=== PATIENT | male | born 1970 | race Caucasian/White ===

== ENCOUNTER 2018-08-05 19:56 | Emergency (ER) | payer OTHER ==
[2018-08-05 20:35] VITALS: BP 130/76; PULSE 85; RESP 18; TEMP 97.9
[2018-08-05] MEDS ORDERED: PROPARACAINE 0.5% OPHTH DROPS 15 ML BTL LEFT EYE STA (20:41)
--- NOTE | 2018-08-05 21:56 | ED ---
General Adult HPI - General Chief complaint: ENT Stated complaint: Rust in Eye Time Seen by Provider: 08/05/18 20:40 Source: patient, RN notes reviewed, old records reviewed Mode of arrival: ambulatory Limitations: no limitations - History of Present Illness Initial comments: 48-year-old male patient with past medical history of renal calculi presents to ED with possible foreign body in eye. Patient reports that he was working on his car last night. Patient had a lot of debris on his sweater. Patient office where he felt something go into his eye. Patient had left ocular irritation throughout the day. Patient denies any other complaints. Systemic: Pt denies fatigue, myalgia, fever/chills, rash. Pt denies weakness, night sweats, weight loss. Neuro: Pt denies headache, visual disturbances, syncope or pre-syncope. HEENT: Pt denies ocular discharge or irritation, otalgia, rhinorrhea, pharyngitis or notable lymphadenopathy. Cardiopulmonary: Pt denies chest pain, SOB, heart palpitations, dyspnea on exertion. Abdominal/GI: Pt denies abdominal pain, n/v/d. : Pt denies dysuria, burning w/ urination, frequency/urgency. Denies new onset urinary or bowel incontinence. MSK: Pt denies myalgia, loss of strength or function in extremities. Neuro: Pt denies new onset weakness, paresthesias. - Related Data Home Medications Medication Instructions Recorded Confirmed Hydrocodone/Acetaminophen [Vicodin 1 - 2 each PO Q6HR PRN 04/07/14 04/15/14 5-300 mg Tablet] Previous Rx's Medication Instructions Recorded Hydrocodone/Acetaminophen [[place] 1 - 2 each PO Q6HR PRN #90 tab 04/15/14 5-325] Gentamicin 0.3% Ophth Oint [Gentak 1 applic BOTH EYES Q8H 5 Days #1 08/05/18 0.3% Ophth Oint] tube Allergies Allergy/AdvReac Type Severity Reaction Status Date / Time Penicillins Allergy Unknown Verified 08/05/18 20:35 Childhood Review of Systems ROS Statement: Those systems with pertinent positive or pertinent negative responses have been documented in the HPI. ROS Other: All systems not noted in ROS Statement are negative. Past Medical History Past Medical History: Musculoskeletal Disorder Additional Past Medical History / Comment(s): hx. kidney stones, Crohn's disease, bulging disc History of Any Multi-Drug Resistant Organisms: None Reported Past Surgical History: Bowel Resection Past Anesthesia/Blood Transfusion Reactions: No Reported Reaction Past Psychological History: No Psychological Hx Reported Smoking Status: Current every day smoker Past Alcohol Use History: Occasional Past Drug Use History: None Reported General Exam - General Exam Comments Initial Comments: Constitutional: NAD, AOX3, Pt has pleasant affect. HEENT: NC/AT, trachea midline, neck supple, no lymphadenopathy. Posterior pharynx non erythematous, without exudates. External ears appear normal, without discharge. Mucous membranes moist. Eyes PERRLA, EOM intact. There is no scleral icterus. Small piece of metal noted at approximately 6:00. Removed with Q-tip. Small rust ring removed with [place] brush. Fluorescein stain revealed uptake at rest removal, no other areas of uptake. IOP's average 13 bilaterally. No pallor noted. Cardiopulmonary: RRR, no murmurs, rubs or gallops, no JVD noted. Lungs CTAB in anterior and posterior mesa. No peripheral edema. Abdominal exam: Abdomen soft and non-distended. Abdomen non-tender to palpation in all 4 quadrants. Bowel sounds active in LLQ. No hepatosplenomegaly. No ecchymosis Neuro: CN II-XII grossly intact. No nuchal rigidity. MSK: No posterior calf tenderness bilaterally, homans sign negative bilaterally. Posterior tibialis and radial pulse +2 bilaterally. Sensation intact in upper and lower extremities. Full active ROM in upper and lower extremities, 5/5 stregnth. Limitations: no limitations Course Vital Signs 08/05/18 20:32 Temperature 97.9 F Pulse Rate 85 Respiratory 18 Rate Blood Pressure 130/76 O2 Sat by Pulse 96 Oximetry Medical Decision Making - Medical Decision Making 48-year-old male patient with past medical history of renal calculi presents to ED with possible foreign body in eye. Patient reports that he was working on his car last night. Patient had a lot of debris on his sweater. Patient office where he felt something go into his eye. Patient had left ocular irritation throughout the day. Patient denies any other complaints. Patient vitalsigns stable, afebrile. Physical exam displayed: Small piece of metal noted at approximately 6:00. Removed with Q-tip. Small rust ring removed with [place] brush. Fluorescein stain revealed uptake at rest removal, no other areas of uptake. IOP's average 13 bilaterally. Patient prescribed gentamicin ointment. Patient to follow-up with dialysis clinical manager in 1-2 days. Patient tetanus updated within last 5 years per patient. Case discussed with Dr. Cooley. Disposition Clinical Impression: Corneal abrasion Disposition: HOME SELF-CARE Condition: Stable Instructions (If sedation given, give patient instructions): Corneal Abrasion (ED) Additional Instructions: Patient to adhere to previously discussed treatment plan and will take medication(s) as directed. Patient to follow up with PCP in 1-2 days. Patient to return to ED if symptoms do not improve. Please take anabiotic ointment as prescribed. Please follow-up with dialysis clinical manager in 1-2 days. Please follow up with primary care provider in 1-2 days. Please return to ER if condition worsens in any way. Prescriptions: Gentamicin 0.3% Ophth Oint [Gentak 0.3% Ophth Oint] 1 applic BOTH EYES Q8H 5 Days #1 tube Is patient prescribed a controlled substance at d/c from ED?: No Referrals: None,Stated [Primary Care Provider] - 1-2 days Kelsey Pierre MD [STAFF PHYSICIAN] - 1-2 days
== END 2018-08-05 22:03 | disposition home or self-care (01) ==
LOC: EC 19:56
DX: T15.02XA Foreign body in cornea, left eye, initial encounter (principal); F17.200 Nicotine dependence, unspecified, uncomplicated; Z88.0 Allergy status to penicillin
CPT/HCPCS: 99283

== ENCOUNTER 2020-06-19 16:14 | Emergency (ER) | payer OTHER ==
[2020-06-19 16:22] VITALS: BP 141/86; PULSE 91; RESP 18; TEMP 98.2
[2020-06-19] MEDS ORDERED: DIPH,PERTUS(ACELL)TETVAC-LF 0.5 ML VIAL IM ONE (16:46)
--- NOTE | 2020-06-19 16:55 | ED ---
Burn/Smoke HPI - General Chief complaint: Burn/Smoke Inhalation Stated complaint: Burn on L Hand Time Seen by Provider: 06/19/20 16:24 Source: patient, RN notes reviewed Mode of arrival: ambulatory Limitations: no limitations - History of Present Illness Initial comments: this is a 49-year-old male who states he was using hot motor oil to expanded bearing before he put on the shaft of material he was working on when he actually burned both hands on the motor oil. This did occur 2 days ago. He states he has some increased pain to the left hand at this time salt to the dorsal aspect. He denies any overt fevers chills or sweats he states the skin is turning colors over both hands worse over the left he has some sloughing of the skin on the left hand. He states on the pain radiates up his left forearm no evidence of any lymphangitis he states other complaints or modifying factors at this time. He does have full range of motion both hands no loss of sensation or function. He also states he's not exactly sure when his last tetanus shot was. He has been clean the wounds using accommodation of wound cleanser and hydrogen peroxide. MD Complaint: burn - Related Data Previous Rx's Medication Instructions Recorded Ibuprofen 800 mg PO Q6HR PRN #20 tablet 06/19/20 SILVER sulfADIAZINE Cream 1 applic TOPICAL BID #400 gram 06/19/20 [Silvadene 1% Cream] Allergies Allergy/AdvReac Type Severity Reaction Status Date / Time Penicillins Allergy Unknown Verified 06/19/20 17:05 Childhood Review of Systems ROS Statement: Those systems with pertinent positive or pertinent negative responses have been documented in the HPI. ROS Other: All systems not noted in ROS Statement are negative. Past Medical History Past Medical History: Musculoskeletal Disorder Additional Past Medical History / Comment(s): hx. kidney stones, Crohn's disease, bulging disc History of Any Multi-Drug Resistant Organisms: None Reported Past Surgical History: Bowel Resection Past Anesthesia/Blood Transfusion Reactions: No Reported Reaction Past Psychological History: No Psychological Hx Reported Smoking Status: Current every day smoker Past Alcohol Use History: Occasional Past Drug Use History: None Reported General Exam - General Exam Comments Initial Comments: this is a well-developed well-nourished awake alert oriented 3 male Limitations: no limitations General appearance: alert, anxious Head exam: Present: atraumatic, normocephalic, normal inspection Eye exam: Present: normal appearance, PERRL, EOMI. Absent: scleral icterus, conjunctival injection, periorbital swelling ENT exam: Present: normal exam Neck exam: Present: normal inspection, full ROM. Absent: tenderness, meningismus, lymphadenopathy Respiratory exam: Present: normal lung sounds bilaterally. Absent: respiratory distress, wheezes, rales, rhonchi, stridor Cardiovascular Exam: Present: regular rate, normal rhythm. Absent: systolic murmur, diastolic murmur, rubs, gallop, clicks GI/Abdominal exam: Absent: distended, tenderness, guarding, rebound, rigid Extremities exam: Present: full ROM, tenderness, normal capillary refill, other (tenderness palpation over the dorsum of both hands evidence of partial- thickness burn to the dorsal aspect of both hands especially on the left total by surface area of both hands combined is less 1%.There is some sloughing of skin on the dorsal right hand very minimal evidence of any joint involv). Abs ent: pedal edema, joint swelling, calf tenderness Back exam: Present: normal inspection Neurological exam: Present: alert, oriented X3, CN II-XII intact Psychiatric exam: Present: normal affect, normal mood Skin exam: Present: warm, dry. Absent: intact, normal color, rash Course Vital Signs 06/19/20 16:19 Temperature 98.2 F Pulse Rate 91 Respiratory 18 Rate Blood Pressure 141/86 O2 Sat by Pulse 99 Oximetry Medical Decision Making - Medical Decision Making patient did have clean dressing applied with Silvadene he will be discharged with a prescription for Silvadene as well as from ibuprofen his doctor return when necessary. No further current treatment is indicated Disposition Clinical Impression: Burn, hands, second degree Disposition: HOME SELF-CARE Condition: Good Instructions (If sedation given, give patient instructions): Second Degree Burn (ED) Prescriptions: Ibuprofen 800 mg PO Q6HR PRN #20 tablet PRN Reason: Pain SILVER sulfADIAZINE Cream [Silvadene 1% Cream] 1 applic TOPICAL BID #400 gram Is patient prescribed a controlled substance at d/c from ED?: No Referrals: None,Stated [Primary Care Provider] - 1-2 days
[2020-06-19] MEDS ORDERED: IBUPROFEN 800 MG TAB PO STA (17:21)
== END 2020-06-19 17:34 | disposition home or self-care (01) ==
LOC: EC 16:14
DX: T23.202A Burn of second degree of left hand, unspecified site, initial encounter (principal); T23.201A Burn of second degree of right hand, unspecified site, initial encounter; T31.0 Burns involving less than 10% of body surface; F17.200 Nicotine dependence, unspecified, uncomplicated; Z88.0 Allergy status to penicillin; Z23 Encounter for immunization; X12.XXXA Contact with other hot fluids, initial encounter
CPT/HCPCS: 90471; 90715; 99284

== ENCOUNTER 2020-07-30 09:40 | Emergency (ER) | payer OTHER ==
[2020-07-30 09:44] VITALS: BP 150/91; PULSE 117; RESP 18; TEMP 98
[2020-07-30] MEDS ORDERED: LIDOCAINE 1% INJ 10MG/ML (20 ML MDV) SQ ONE (09:54)
--- NOTE | 2020-07-30 09:58 | ED ---
Wound/Laceration HPI - General Chief Complaint: Wound/Laceration Stated Complaint: hand injury Time Seen by Provider: 07/30/20 09:45 Source: patient, RN notes reviewed Mode of arrival: ambulatory Limitations: no limitations - History of Present Illness Initial Comments: This a 50-year-old male presents emergency Department chief complaint laceration to his left hand third digit. Patient states that he has a laceration from a knife. Patient states his tetanus is up-to-date. Denies any paresthesias no decreased range of motion. Patient offers no other complaints. - Related Data Home Medications Medication Instructions Recorded Confirmed No Known Home Medications 07/30/20 07/30/20 Allergies Allergy/AdvReac Type Severity Reaction Status Date / Time Penicillins Allergy Unknown Verified 07/30/20 10:12 Childhood Review of Systems ROS Statement: Those systems with pertinent positive or pertinent negative responses have been documented in the HPI. ROS Other: All systems not noted in ROS Statement are negative. Past Medical History Past Medical History: Musculoskeletal Disorder Additional Past Medical History / Comment(s): hx. kidney stones, Crohn's disease, bulging disc History of Any Multi-Drug Resistant Organisms: None Reported Past Surgical History: Bowel Resection Past Anesthesia/Blood Transfusion Reactions: No Reported Reaction Past Psychological History: No Psychological Hx Reported Smoking Status: Current every day smoker Past Alcohol Use History: Occasional Past Drug Use History: None Reported General Exam Limitations: no limitations General appearance: alert, in no apparent distress Respiratory exam: Present: normal lung sounds bilaterally. Absent: respiratory distress, wheezes, rales, rhonchi, stridor Cardiovascular Exam: Present: regular rate, normal rhythm, normal heart sounds. Absent: systolic murmur, diastolic murmur, rubs, gallop, clicks Extremities exam: Present: other (Left hand third digit there is a V-shaped laceration 3 cm range motion neurovascular intact full strength) Skin exam: Present: warm, dry, intact, normal color. Absent: rash Course Vital Signs 07/30/20 09:41 Temperature 98 F Pulse Rate 117 H Respiratory 18 Rate Blood Pressure 150/91 O2 Sat by Pulse 97 Oximetry Procedures - Laceration Laceration #1 Consent Obtained: verbal consent Indication: laceration Site: hand (Right hand third digit) Size (cm): 3 Description: flap, irregular Depth: simple, single layer Anesthetic Used: lidocaine 1%, without epi Anesthesia Technique: local infiltration Amount (mls): 3 Pre-repair: wound explored, irrigated extensively, deep structures intact Type of Sutures: nylon Size of Sutures: 4-0 Number of Sutures: 5 Technique: simple, interrupted Patient Tolerated Procedure: well, no complications Medical Decision Making - Medical Decision Making Patient's finger was sutured with no complications. Patient discharged in stable condition wound care instruction provided return parameters were provided. Disposition Clinical Impression: Laceration of finger of right hand Disposition: HOME SELF-CARE Condition: Stable Instructions (If sedation given, give patient instructions): Care For Your Stitches (ED), Finger Laceration (ED) Additional Instructions: Have sutures removed in 10 days. Please return to the Emergency Department if symptoms worsen or any other concerns. Is patient prescribed a controlled substance at d/c from ED?: No Referrals: None,Stated [Primary Care Provider] - 1-2 days Time of Disposition: 10:22
== END 2020-07-30 10:46 | disposition home or self-care (01) ==
LOC: EC 09:40
DX: S61.214A Laceration without foreign body of right ring finger without damage to nail, initial encounter (principal); W26.0XXA Contact with knife, initial encounter; Z87.442 Personal history of urinary calculi; F17.200 Nicotine dependence, unspecified, uncomplicated
CPT/HCPCS: 99282; 12002; J2001; 12001

== ENCOUNTER 2021-11-27 08:23 | Emergency (ER) | payer OTHER ==
[2021-11-27 08:28] VITALS: RESP 18
[2021-11-27] MEDS ORDERED: PROPARACAINE 0.5% OPHTH DROPS 15 ML BTL LEFT EYE STA (08:42)
[2021-11-27] MEDS ORDERED: FLUORESCEIN STRIPS 1 MG STRIP LEFT EYE ONE (08:44)
--- NOTE | 2021-11-27 09:09 | ED ---
Eye Problem HPI - General Chief complaint: Eye Problems Stated complaint: Eye Injury Time Seen by Provider: 11/27/21 08:40 Source: patient Mode of arrival: ambulatory Limitations: no limitations - History of Present Illness Initial comments: Patient is a 51-year-old male presenting with chief complaint of left eye discomfort. 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 He attempted to flush the eye out and afterwards he felt better, however this morning the eye is painful, swollen, and sensitive to light. He admits to some blurry vision. He states his last tetanus shot was less than 5 years ago. - Related Data Previous Rx's Medication Instructions Recorded Erythromycin Ophth Oint [Romycin 1 applic LEFT EYE QID 5 Days #3.5 11/27/21 Ophth Oint] gm Allergies Allergy/AdvReac Type Severity Reaction Status Date / Time Penicillins Allergy Unknown Verified 11/27/21 08:27 Childhood Review of Systems ROS Statement: Those systems with pertinent positive or pertinent negative responses have been documented in the HPI. ROS Other: All systems not noted in ROS Statement are negative. Past Medical History Past Medical History: Musculoskeletal Disorder Additional Past Medical History / Comment(s): hx. kidney stones, Crohn's disease, bulging disc History of Any Multi-Drug Resistant Organisms: None Reported Past Surgical History: Bowel Resection Past Anesthesia/Blood Transfusion Reactions: No Reported Reaction Past Psychological History: No Psychological Hx Reported Smoking Status: Current every day smoker Past Alcohol Use History: Occasional Past Drug Use History: None Reported General Exam Limitations: no limitations General appearance: alert, in no apparent distress Head exam: Present: atraumatic, normocephalic, normal inspection Eye exam: Present: PERRL, EOMI. Absent: scleral icterus Expanded Pupils: Regular, Round: Bilateral, Reactive: Bilateral Sclera/Conjunctival: Foreign Body: Left (rust ring) Neck exam: Present: normal inspection Neurological exam: Present: alert, oriented X3, CN II-XII intact Psychiatric exam: Present: normal affect, normal mood Skin exam: Present: warm, dry, intact, normal color. Absent: rash Course Vital Signs 11/27/21 11/27/21 08:25 11:04 Temperature 98.4 F 98 F Pulse Rate 73 70 Respiratory 18 18 Rate Blood Pressure 132/76 131/74 O2 Sat by Pulse 99 Oximetry Medical Decision Making - Medical Decision Making Patient is a 51-year-old male presenting with chief complaint of "there is something in my eye". 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 This morning when he woke up the eye was painful, swollen, and he felt a foreign body sensation. On examination there is a piece of metal seen with the slit lamp. Portion of the metal was removed, using a moist cotton swab however rust ring still remains. Patient was started on erythromycin eye ointment and instructed to follow-up with ophthalmology. Report back to ER if any new or worsening symptoms. I discussed return parameters answered all questions. Patient conveyed verbal understanding and agreed to the plan. I discussed this case with my attending Dr. Griffin. Disposition Clinical Impression: Corneal rust ring of left eye, Corneal abrasion Disposition: HOME SELF-CARE Condition: Good Instructions (If sedation given, give patient instructions): Eye Foreign Body (ED), Abrasion (ED) Additional Instructions: Follow-up with ophthalmology for removal of rust ring, call tomorrow morning and follow up as soon as possible. Follow up with PCP in one to 2 days. Report back to ER with any new or worsening symptoms. Take medication as prescribed. Prescriptions: Erythromycin Ophth Oint [Romycin Ophth Oint] 1 applic LEFT EYE QID 5 Days #3.5 gm Is patient prescribed a controlled substance at d/c from ED?: No Referrals: None,Stated [Primary Care Provider] - 1-2 days Daniel Pollard MD [STAFF PHYSICIAN] - 1-2 days Time of Disposition: 10:20
[2021-11-27 11:08] VITALS: BP 131/74; PULSE 70; TEMP 98
== END 2021-11-27 11:04 | disposition home or self-care (01) ==
LOC: EC 08:23
DX: S05.02XA Injury of conjunctiva and corneal abrasion without foreign body, left eye, initial encounter (principal); H16.022 Ring corneal ulcer, left eye; F17.200 Nicotine dependence, unspecified, uncomplicated; Z88.0 Allergy status to penicillin; W31.2XXA Contact with powered woodworking and forming machines, initial encounter
CPT/HCPCS: 99283

== ENCOUNTER 2023-07-25 12:15 | Day surgery (SDC) | payer OTHER ==
[2023-07-25 12:51] VITALS: RESP 18
[2023-07-25 13:00] LABS: African American GFR (CKD) >90 (>60 ml/min/1.73 sqM); Blood Urea Nitrogen 15 mg/dL (9-20); Non-African American GFR(CKD) >90 (>60 ml/min/1.73 sqM)
[2023-07-25 15:17] VITALS: BP 124/80; PULSE 76
--- NOTE | 2023-07-25 15:59 | P.OP ---
Date of Procedure: 07/25/23 Description of Procedure: Preoperative Diagnosis: Need for chemotherapy, anal cancer Postoperative Diagnosis: Same. Procedure(s) Performed: Ultrasound-guided cannulation left basilic vein. Insertion of peripherally inserted central catheter under fluoroscopic guidance. Anesthesia: local 1% lidocaine plain Surgeon: Wesley Estimated Blood Loss (ml): 5 IV fluids (ml): 0 Urine output (ml): 0 Pathology: none sent Condition: stable Disposition: no change Indications for Procedure: Patient requires long-term IV antibiotics as an outpatient patient is offered a PICC line to allow for intravenous administration of antibiotics. Description of Procedure: Patient was brought to the special procedure suite. The left upper extremity sterilely prepped and draped in usual manner. Ultrasound was utilized to identify the basilic vein which was normally compressible free of visible thrombus. Permenant image was stored. 1% Xylocaine was utilized for local anesthesia tissues overlying the vein. Through this anesthetized area and with the aid of ultrasound a micropuncture needle was utilized to cannulate the vein. Once cannulated, Softip guidewire was advanced into the vein. The needle was withdrawn and a micropuncture sheath and dilator advanced over the guidewire. The guidewire was withdrawn and exchanged for the PICC guidewire and measured to the cavoatrial junction. The catheter was cut to size and advanced into the cavoatrial junction without resistance. The sheath was peeled away. Blood was easily withdrawn through the catheter and the catheter was then flushed with heparinized saline solution and secured to the skin. Patient tolerated procedure well and was returned to their room in satisfactory and stable condition.
--- NOTE | 2023-07-26 13:18 | IR ---
PICC Insertion: EXAMINATION TYPE: IR cvc insert >=5 years Intraoperative/procedural fluoroscopic services were provid ed. CLINICAL INDICATION:Male, 52 years old with history of dual lumen,bloods draws,chemo, 41cm basillic; , [facility] Total fluoroscopy time is 0.0 min. DAP: 0.0657 Gycm2 uGym2 Please see the operative/procedural note for further details.
== END 2023-07-25 14:35 | disposition home or self-care (01) ==
LOC: CATHCVL 12:15
PROVIDERS: ATTEND Surgery
DX: Z45.2 Encounter for adjustment and management of vascular access device (principal); C21.0 Malignant neoplasm of anus, unspecified
CPT/HCPCS: 36573; 82565; 84520; C1751; C1769

== ENCOUNTER 2024-01-26 16:49 | Observation (INO) | payer OTHER ==
[2024-01-26] MEDS: KETOROLAC 15 MG/ML 1 ML VIAL IVP STA (17:18)
[2024-01-26] MEDS: MORPHINE SULFATE 4 MG/ML SYRINGE IVP STA (17:18)
--- NOTE | 2024-01-26 17:31 | ED ---
General Adult HPI - General Chief complaint: Skin/Abscess/Foreign Body Stated complaint: jaw abcess Time Seen by Provider: 01/26/24 17:01 Source: patient Mode of arrival: ambulatory Limitations: no limitations - History of Present Illness Initial comments: 53-year-old male presenting with chief complaint of painful mass to the right submandibular region. Started yesterday and patient states that it was small and soft. As the day went on and throughout today it has been getting larger, tender, and harder. He has pain traveling to his ear and down his neck. No difficulty breathing or swallowing. No fevers. No hearing changes or discharge from the ear. No sore throat. No dry mouth. - Related Data Home Medications Medication Instructions Recorded Confirmed No Known Home Medications 07/24/23 07/25/23 Allergies Allergy/AdvReac Type Severity Reaction Status Date / Time Penicillins Allergy Unknown Verified 07/25/23 12:29 Childhood Review of Systems ROS Statement: Those systems with pertinent positive or pertinent negative responses have been documented in the HPI. ROS Other: All systems not noted in ROS Statement are negative. Past Medical History Past Medical History: Cancer, Musculoskeletal Disorder Additional Past Medical History / Comment(s): hx. kidney stones, Crohn's disease, hx bulging disc, rectal cancer, pt to start radiation soon. recent PET scan History of Any Multi-Drug Resistant Organisms: None Reported Past Surgical History: Back Surgery, Bowel Resection Additional Past Surgical History / Comment(s): disc surgery, colostomy with reversal. colonoscopy, anal biopsy and with more extensive tissue removal 3-4 weeks ago @ [facility]. Past Anesthesia/Blood Transfusion Reactions: No Reported Reaction Past Psychological History: No Psychological Hx Reported Smoking Status: Current every day smoker - Past Family History Father Family Medical History: Cancer Additional Family Medical History / Comment(s): prostate General Exam Limitations: no limitations General appearance: alert, in no apparent distress Head exam: Present: atraumatic, normocephalic Eye exam: Present: normal appearance, EOMI ENT exam: Present: normal oropharynx, mucous membranes moist Neck exam: Present: other (There is a 3 cm x 3 cm tender indurated mass near the base of the right ear). Absent: meningismus Respiratory exam: Absent: respiratory distress Cardiovascular Exam: Present: regular rate Neurological exam: Present: alert, oriented X3 Psychiatric exam: Present: normal affect, normal mood Skin exam: Present: warm, dry Course Vital Signs 01/26/24 01/26/24 01/26/24 16:52 19:02 20:00 Temperature 98.1 F Pulse Rate 79 84 76 Respiratory 16 16 16 Rate Blood Pressure 133/69 136/72 151/66 O2 Sat by Pulse 97 96 95 Oximetry 01/26/24 23:00 Temperature Pulse Rate 76 Respiratory 18 Rate Blood Pressure 150/70 O2 Sat by Pulse 98 Oximetry Medical Decision Making - Medical Decision Making Was pt. sent in by a medical professional or institution (, PA, FLORAL ARTIST, urgent care, hospital, or custodial...) When possible be specific @ -No Did you speak to anyone other than the patient for history (EMS, parent, family, police, friend...)? What history was obtained from this source @ -No Did you review nursing and triage notes (agree or disagree)? Why? @ -I reviewed and agree with nursing and triage notes Were old charts reviewed (outside hosp., previous admission, EMS record, old EKG, old radiological studies, urgent care reports/EKG's, custodial records)? Report findings @ -No old charts were reviewed Differential Diagnosis (chest pain, altered mental status, abdominal pain women, abdominal pain men, vaginal bleeding, weakness, fever, dyspnea, syncope, headache, dizziness, GI bleed, back pain, seizure, CVA, palpatations, mental health, musculoskeletal)? @ -Differential includes sialadenitis, parotiditis, malignancy, ly mphadenopathy, abscess, this is not an all-inclusive list EKG interpreted by me (3pts min.). @ -As above X-rays interpreted by me (1pt min.). @ -None done CT interpreted by me (1pt min.). @ -CT shows 3.3 cm mass in the right parotid gland. Salivary gland neoplasm is in the differential. Borderline and mildly enlarged parotid space lymph nodes on both sides measuring up to 1 cm nonspecific. Asymmetric effacement left vallecular space probably due to asymmetric lingual tonsillar hypertrophy. Direct visualization to exclude a mucosal lesion. COPD with mild emphysema. Either 1.5 cm polyp or mucosal retention cyst of the right frontal sinus. U/S interpreted by me (1pt. min.). @ -None done What testing was considered but not performed or refused? (CT, X-rays, U/S, labs)? Why? @ -None What meds were considered but not given or refused? Why? @ -None Did you discuss the management of the patient with other professionals (professionals i.e. , PA, FLORAL ARTIST, lab, RT, psych nurse, licensed clinical social worker, manager of warehouse, teacher, records officer, social work case manager)? Give summary @ -I spoke with Katalina Montoya from [facility] who accepts admission Was smoking cessation discussed for >3mins.? @ -No Was critical care preformed (if so, how long)? @ -No Were there social determinants of health that impacted care today? How? (Homelessness, low income, unemployed, alcoholism, drug addiction, transportation, low edu. Level, literacy, decrease access to med. care, usp, rehab)? @ -No Was there de-escalation of care discussed even if they declined (Discuss DNR or withdrawal of care, Hospice)? DNR status @ -No What co-morbidities impacted this encounter? (DM, HTN, Smoking, COPD, CAD, Cancer, CVA, ARF, Chemo, Hep., AIDS, mental health diagnosis, sleep apnea, morbid obesity)? @ -None Was patient admitted / discharged? Hospital course, mention meds given and route, prescriptions, significant lab abnormalities, going to OR and other pertinent info. @ -53-year-old male presenting with chief complaint of increasingly swollen and painful bump to the right submandibular region. On exam this area is indurated and tender to the touch. WBC 12.4. CT shows 3.3 cm mass of the parotid gland. Patient will be admitted for ENT consult. He is started on vancomycin. Patient is agreeable with this plan. I discussed this case with my attending Dr. Cooley Undiagnosed new problem with uncertain prognosis? @ -No Drug Therapy requiring intensive monitoring for toxicity (Heparin, Nitro, Insulin, Cardizem)? @ -No Were any procedures done? @ -No Diagnosis/symptom? @ -Parotid gland mass Acute, or Chronic, or Acute on Chronic? @ -Acute Uncomplicated (without systemic symptoms) or Complicated (systemic symptoms)? @ -Complicated Side effects of treatment? @ -No Exacerbation, Progression, or Severe Exacerbation? @ -No Poses a threat to life or bodily function? How? (Chest pain, [place], [place], pneumonia, PE, COPD, DKA, ARF, appy, cholecystitis, CVA, Diverticulitis, Homicidal, Suicidal, threat to staff... and all critical care pts) @ -yes - Lab Data Result diagrams: 01/26/24 17:05 01/27/24 04:56 Lab Results 01/26/24 01/26/24 01/26/24 Range/Units 17:05 17:05 17:05 WBC 12.4 H (3.8-10.6) k/uL RBC 4.46 (4.30-5.90) m/uL Hgb 13.3 (13.0-17.5) gm/dL Hct 41.5 (39.0-53.0) % MCV 93.0 (80.0-100.0) fL MCH 29.9 (25.0-35.0) pg MCHC 32.1 (31.0-37.0) g/dL RDW 13.4 (11.5-15.5) % Plt Count 263 (150-450) k/uL MPV 6.8 Neutrophils % 85 % Lymphocytes % 6 % Monocytes % 5 % Eosinophils % 3 % Basophils % 0 % Neutrophils # 10.5 H (1.3-7.7) k/uL Lymphocytes # 0.7 L (1.0-4.8) k/uL Monocytes # 0.6 (0-1.0) k/uL Eosinophils # 0.4 (0-0.7) k/uL Basophils # 0.0 (0-0.2) k/uL Sodium 136 L (137-145) mmol/L Potassium 4.1 (3.5-5.1) mmol/L Chloride 105 (98-107) mmol/L Carbon Dioxide 26 (22-30) mmol/L Anion Gap 5 mmol/L BUN 16 (9-20) mg/dL Creatinine 0.80 (0.66-1.25) mg/dL Est GFR (CKD-EPI)AfAm >90 (>60 ml/min/1.73 sqM) Est GFR (CKD-EPI)NonAf >90 (>60 ml/min/1.73 sqM) Glucose 92 (74-99) mg/dL Plasma Lactic Acid Nathaniel 0.9 (0.7-2.0) mmol/L Calcium 9.6 (8.4-10.2) mg/dL Total Bilirubin 0.4 (0.2-1.3) mg/dL AST 27 (17-59) U/L ALT 21 (4-49) U/L Alkaline Phosphatase 51 (38-126) U/L Total Protein 7.1 (6.3-8.2) g/dL Albumin 4.1 (3.5-5.0) g/dL Disposition Clinical Impression: Mass of parotid gland Disposition: ADMITTED IP TO THIS HOSP Condition: Fair Time of Disposition: 20:40
[2024-01-26 17:42] LABS: Basophils % (A) 0 %; Eosinophils # (A) 0.4 k/uL (0-0.7); Eosinophils % (A) 3 %; HCT 41.5 % (39.0-53.0); HGB 13.3 gm/dL (13.0-17.5); Lymphocytes # (A) 0.7 k/uL (1.0-4.8); Lymphocytes % (A) 6 %; MCH 29.9 pg (25.0-35.0); MCHC 32.1 g/dL (31.0-37.0); Mean Platelet Volume 6.8; Monocytes # (A) 0.6 k/uL (0-1.0); Monocytes % (A) 5 %; Neutrophils # (A) 10.5 k/uL (1.3-7.7); Neutrophils % (A) 85 %; Platelet Count 263 k/uL (150-450); RBC 4.46 m/uL (4.30-5.90); RDW 13.4 % (11.5-15.5); WBC 12.4 k/uL (3.8-10.6)
[2024-01-26 18:01] LABS: ALT 21 U/L (4-49); AST 27 U/L (17-59); African American GFR (CKD) >90 (>60 ml/min/1.73 sqM); Albumin 4.1 g/dL (3.5-5.0); Alkaline Phosphatase 51 U/L (38-126); Anion Gap 5 mmol/L; Blood Urea Nitrogen 16 mg/dL (9-20); Calcium 9.6 mg/dL (8.4-10.2); Carbon Dioxide 26 mmol/L (22-30); Chloride 105 mmol/L (98-107); Glucose 92 mg/dL (74-99); Non-African American GFR(CKD) >90 (>60 ml/min/1.73 sqM); Potassium 4.1 mmol/L (3.5-5.1); Sodium 136 mmol/L (137-145); Total Bilirubin 0.4 mg/dL (0.2-1.3); Total Protein 7.1 g/dL (6.3-8.2)
--- NOTE | 2024-01-26 19:48 | CT ---
EXAMINATION TYPE: CT soft tissue neck w con DATE OF EXAM: 01/26/2024 COMPARISON: None HISTORY: 53-year-old male Right mass to right corner of chin at ear base. Hard tender to touch, no dr alfaro. pt states started yesterday. TECHNIQUE: Contiguous axial scanning of the soft tissues of the neck performed with IV Contrast, betzaida ent injected with 100 ml mL of Isovue 300. Coronal/sagittal reconstructions performed. CT DLP: 289 mGycm Automated exposure control for dose reduction was used. FINDINGS: Visualized intracranial structures, orbits and globes, and mastoid air cells appear clear. There is mucosal thickening throughout the right frontal sinus and ethmoid air cells. Either a 1.5 cm polyp or mucosal retention cyst of the right frontal sinus. Nasopharynx appears clear. Oropharynx shows asymmetric effacement of the left vallecular space probably due to lingual tonsillar hypertrophy. Glottic and subglottic airway as well as the tracheal column appear clear. Mild emphysematous change in the visualized upper lungs. Open configuration to the aortic arch. The thyroid gland and seminal glands appear grossly unremarkable. Left parotid gland is atrophic. Lym ph nodes in the parotid space on the left at the level of the parotid tail measure up to 9 mm. 1.0 c m at the right parotid tail. In addition, there is a 3.3 cm mass centered within the superficial lobe of the right parotid gland. Etiology unclear. Bones: No osseous destructive process. Patient is edentulous. IMPRESSION: 1. A 3.3 cm mass of the right parotid gland. Salivary gland neoplasm is in the differential. Recommen d ENT referral for further workup. 2. Borderline and mildly enlarged parotid space lymph nodes on both sides measuring up to 1 cm are no nspecific. 3. Asymmetric effacement left vallecular space probably due to asymmetric lingual tonsillar hypertrop hy. Direct visualization to exclude a mucosal lesion. 4. COPD with mild emphysema. 5. Either a 1.5 cm polyp or mucosal retention cyst of the right frontal sinus. [facility], , 01/26/2024 7:46 PM
[2024-01-26] MEDS ORDERED: VANCOMYCIN IV PER PHARMACY 1 EACH MISC MISCELLANE PRN (20:22)
[2024-01-26] MEDS ORDERED: NALOXONE 0.4 MG/ML 1 ML VIAL IV PRN (20:39)
[2024-01-26] MEDS: VANCOMYCIN 1,500 MG in SODIUM CHLORIDE 0.9% 500 ML 500 ML IVPB STA (20:47)
[2024-01-26] MEDS: SODIUM CHLORIDE 0.9% 1,000 ML IV SCH (20:48)
[2024-01-26] MEDS: MORPHINE SULFATE 4 MG/ML SYRINGE IV PRN (20:50)
[2024-01-26] MEDS: HYDROmorphone 1 MG/ML 1 ML SYRINGE IVP PRN (22:09)
[2024-01-26] MEDS: DEXAMETHASONE SOD PHOSPHATE 10 MG/ML 1 ML VIAL IVP STA (22:27)
[2024-01-27 05:30] LABS: African American GFR (CKD) >90 (>60 ml/min/1.73 sqM); Non-African American GFR(CKD) >90 (>60 ml/min/1.73 sqM)
[2024-01-27] MEDS: VANCOMYCIN 1,500 MG in SODIUM CHLORIDE 0.9% 500 ML 500 ML IVPB SCH (05:30)
[2024-01-27] MEDS: KETOROLAC 15 MG/ML 1 ML VIAL IVP PRN (09:20)
--- NOTE | 2024-01-27 13:23 | P.HPIM ---
History of Present Illness H&P Date: 01/27/24 Chief Complaint: Facial swelling 53-year-old male presenting with chief complaint of painful mass to the right submandibular region. Started yesterday and patient states that it was small and soft. As the day went on and throughout today it has been getting larger, tender, and harder. He has pain traveling to his ear and down his neck. No difficulty breathing or swallowing. No fevers. No hearing changes or discharge from the ear. No sore throat. No dry mouth. -Patient patient does report history of colorectal cancer Blood work completed in ED reveals a WBC of 12.4, hemoglobin of 13.3 and platelet count of 263, sodium 136, potassium 4.1, BUNs/creatinine of 16/0.8 and lactic acid level of 0.9 CT soft tissue neck completed reveals a 3.3 cm mass in right parotid gland; salivary gland neoplasm is not excluded; borderline and mildly enlarged parotid space lymph nodes on both sides Review of Systems REVIEW OF SYSTEMS: CONSTITUTIONAL: No fever, no malaise, no fatigue. HEENT: No recent visual problems or hearing problems. Denied any sore throat. CARDIOVASCULAR: No chest pain, orthopnea, PND, no palpitations, no syncope. PULMONARY: No shortness of breath, no cough, no hemoptysis. GASTROINTESTINAL: No diarrhea, no nausea, no vomiting, no abdominal pain. NEUROLOGICAL: No headaches, no weakness, no numbness. HEMATOLOGICAL: Denies any bleeding or petechiae. GENITOURINARY: Denies any burning micturition, frequency, or urgency. MUSCULOSKELETAL/RHEUMATOLOGICAL: Denies any joint pain, swelling, or any muscle pain. ENDOCRINE: Denies any polyuria or polydipsia. The rest of the 14-point review of systems is negative. Past Medical History Past Medical History: Cancer, Musculoskeletal Disorder Additional Past Medical History / Comment(s): hx. kidney stones, Crohn's disease, hx bulging disc, rectal cancer, pt to start radiation soon. recent PET scan History of Any Multi-Drug Resistant Organisms: None Reported Past Surgical History: Back Surgery, Bowel Resection Additional Past Surgical History / Comment(s): disc surgery, colostomy with reversal. colonoscopy, anal biopsy and with more extensive tissue removal 3-4 weeks ago @ [facility]. Past Anesthesia/Blood Transfusion Reactions: No Reported Reaction Past Psychological History: No Psychological Hx Reported Smoking Status: Current every day smoker - Past Family History Father Family Medical History: Cancer Additional Family Medical History / Comment(s): prostate Mother Family Medical History: No Reported History Medications and Allergies Home Medications Medication Instructions Recorded Confirmed Type No Known Home Medications 07/24/23 01/27/24 History Allergies Allergy/AdvReac Type Severity Reaction Status Date / Time Penicillins Allergy Unknown Verified 01/27/24 09:39 Childhood Physical Exam Vitals: Vital Signs Temp Pulse Pulse Resp BP BP Pulse Ox 01/27/24 08:35 97.8 F 98 16 147/70 95 01/27/24 06:25 87 18 130/87 93 L 01/26/24 23:00 76 18 150/70 98 01/26/24 20:00 76 16 151/66 95 01/26/24 19:02 84 16 136/72 96 01/26/24 16:52 98.1 F 79 16 133/69 97 Intake and Output 01/26/24 01/27/24 01/27/24 22:59 06:59 14:59 Other: Weight 90.718 kg 90.718 kg General appearance: alert, in no apparent distress Head exam: Present: atraumatic, normocephalic Eye exam: Present: normal appearance, EOMI ENT exam: Present: normal oropharynx, mucous membranes moist Neck exam: Present: other (There is a 3 cm x 3 cm tender indurated mass near the base of the right ear). Absent: meningismus Respiratory exam: Absent: respiratory distress Cardiovascular Exam: Present: regular rate Neurological exam: Present: alert, oriented X3 Psychiatric exam: Present: normal affect, normal mood Skin exam: Present: warm, dry Results CBC & Chem 7: 01/26/24 17:05 01/27/24 04:56 Labs: Abnormal Lab Results - Last 24 Hours (Table) 01/26/24 01/26/24 01/27/24 Range/Units 17:05 17:05 04:56 WBC 12.4 H (3.8-10.6) k/uL Neutrophils # 10.5 H (1.3-7.7) k/uL Lymphocytes # 0.7 L (1.0-4.8) k/uL Sodium 136 L (137-145) mmol/L Creatinine 0.64 L (0.66-1.25) mg/dL Thrombosis Risk Factor Assmnt - Choose All That Apply Any of the Below Risk Factors Present?: No Other Risk Factors: No Thrombosis Risk Factor Assessment Level: Very Low Risk Assessment and Plan Assessment: 1. Facial swelling; right parotid mass -CT of the soft tissue neck completed in ED reveals a 3.3 cm mass of right parotid gland. Salivary gland neoplasm is on the differential; borderline and mildly enlarged parotid space lymph nodes -- Patient has been admitted for further evaluation, placed on IV vancomycin with pharmacy dosing service; ENT is consulted; appreciate recommendations 2. Leukocytosis; white blood count is mildly elevated at 12.4, lactic acid level of 0.9; no signs of infection -- We will monitor CBC closely 3. History of colon cancer DVT prophylaxis-CDs CODE STATUS; full code
--- NOTE | 2024-01-27 19:01 | CONS ---
CONSULTATION REASON FOR CONSULTATION: Right parotid mass. HISTORY OF THE PRESENT ILLNESS: I saw this patient on 01/27/2024, and at that time, the patient stated that he had developed swelling in the right side of his face approximately 2 or 3 days ago. At first, the swelling was only slightly tender, but eventually it progressed and became significantly tender, and the swelling seemed to extend into the patient's right upper neck. Most of the swelling was located near the right angle of the mandible. The patient states that he has experienced pain in the right ear with this lesion and also some slight difficulty opening his mouth. In addition, he is complaining of severe right facial pain both deeply and also to palpation. He states that recently he completed chemotherapy for colon cancer. He smokes approximately 1/2 to 1 pack of cigarettes per day and was advised to quit for obvious health reasons. The patient was seen in the emergency room on 01/26/2024, and at that time, a CT scan of the neck with contrast revealed a 3.3 cm right parotid mass without evidence of inflammation, abscess, fluid, or cellulitis. There was also some associated parotid lymphadenopathy but no definite neck lymphadenopathy noted. The patient was subsequently admitted for further treatment. Unfortunately, I was not contacted by the emergency room because had I been contacted by the emergency room and given this patient's x-ray findings and symptoms, I would have advised him that they are probably dealing with a parotid malignancy and the patient needed to be referred/transferred to [facility] for definitive treatment. PAST MEDICAL HISTORY: Reveals patient has an allergy to penicillin and is currently on vancomycin. MEDICATIONS: He is not on any home medications. SOCIAL HISTORY: He smokes approximately 1/2 to 1 pack of cigarettes per day, and I advised that he should seriously consider quitting. REVIEW OF SYSTEMS: Noncontributory. PHYSICAL EXAMINATION: GENERAL: This patient is a pleasant 53-year-old male who is alert and cooperative. HEENT: The patient is normocephalic. Tympanic membranes are normal. Middle ear space is free of any fluid or infection. Pupils equal, round, and reactive to light and accommodation. Extraocular movements within normal limits. Intranasal examination reveals moderate to severe septal deviation with bilateral compensatory hypertrophy of inferior turbinates. Examination of the oropharynx is unremarkable. Palpation of the neck is negative for any neck lymphadenopathy. Careful palpation of the right facial area reveals the patient has a very firm/hard, well-circumscribed non- fluctuant,tender, mass located near the right angle of the mandible. There is some soft tissue elevation surrounding this mass. CT scan of course showed that this is a 3.3cm solid mass. There is no overlying erythema or fluctuance. Cranial nerves 2 through 12 are within normal limits. The remainder of the head and neck exam is unremarkable. CHEST/CARDIOVASCULAR: Both lung mesa are clear to percussion and auscultation. Lung sounds are slightly distant, suggesting early COPD/emphysema. No rales, rhonchi, or wheezes, however. The patient has regular sinus rhythm. S1, S2 are present without any murmurs. Remainder of physical exam is essentially unremarkable. 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 PLAN: It is unfortunate that the emergency room did not call me directly since I was converter operator. Because, as I stated above, I would have directed them to refer this gentleman directly to [facility] for definitive treatment. I do not treat nor does Dr. Phipps treat parotid malignancies. I am quite confident that this does represent malignancy with a very low probability of it not being parotid malignancy because of the patient experiencing facial pain. In addition to this, on reviewing the patient's actual CT scan, it reveals that this mass extends into the deep lobe of the parotid gland. The patient is experiencing pain, most likely from infiltration by this malignancy into the nerves, including branches of the 5th and 7th nerve. Fortunately, the patient does not display any evidence of any facial palsy. As this tumor/cancer has expanded, again these lesions tend to invade the nerve and cause pain and sometimes even facial palsy, unlike benign parotid tumors. Benign parotid tumors may push on the nerve but will never invade the nerve. Although the patient states that he feels better since he has been on the vancomycin, I do not feel this will have any effect on the actual parotid mass itself. Generally, parotid malignancies require total excision of the parotid gland and in most cases sacrifice of the facial nerve. Sometimes limited facial reanimation can be achieved at a later date. Although the patient has history of colon cancer, metastasis of colon cancer to the parotid gland, although it does happen, it is extremely rare that an adenocarcinoma of the colon will metastasize to the parotid gland. It is interesting to note that malignancies of the submandibular gland are usually painless. Certainly, this is in fact a malignancy that has nothing to do with his smoking. While at [facility], they will make a decision whether to do a needle biopsy or to simply proceed with surgery. In most cases, the decision is to proceed with surgery because regardless of the pathological findings of a needle biopsy, this mass still has to be removed surgically. These type of surgeries can take anywhere from 3 to 6 hours or more sometimes to remove and reconstruct the area. Following removal of this mass, assuming it is a malignancy, most physicians do tend to recommend radiation to the area as opposed to chemotherapy. This is an unfortunate situation for this very nice gentleman. Generally with salivary gland tumors, we have a so-called 80% rule; 80% of all salivary gland tumors arise in the parotid gland, 80% of parotid tumors are benign, 80% of the parotid tumors are benign adenomas. I advised the patient that although my office does not accept his [employer] because we are not in their network, I will not be billing this patient for my consultation hospital visit. I spent between 35 and 40 minutes with this patient discussing my findings and informed him that I will recommend that he be referred/transferred to [facility] for definitive treatment. I will sign off this case at this time, but I would like to take this opportunity to thank you for allowing me to assist you in the care of your patient. If I can be of any further assistance, please feel free to call my office. RACHEL / DUANE: [phone] / GREGORY
[2024-01-27 20:34] VITALS: BP 148/76; PULSE 90; RESP 12; TEMP 98.3
[2024-01-28] MEDS ORDERED: VANCOMYCIN TROUGH DUE 1 EACH MISC MISCELLANE ONE (04:00)
== END 2024-01-27 23:04 | disposition other institution (70) ==
LOC: EC 16:49 → 6NMEDSUR 20:39 → 5NMEDONC 01-27 04:13
PROVIDERS: ADMIT Hospitalist; ATTEND Hospitalist
DX: K11.9 Disease of salivary gland, unspecified (principal); D72.829 Elevated white blood cell count, unspecified; F17.210 Nicotine dependence, cigarettes, uncomplicated; Z85.038 Personal history of other malignant neoplasm of large intestine; Z85.048 Personal history of other malignant neoplasm of rectum, rectosigmoid junction, and anus; Z88.0 Allergy status to penicillin; Z92.21 Personal history of antineoplastic chemotherapy
CPT/HCPCS: 36415; 70491; 80053; 82565; 83605; 85025; 87635; 96361; 96365; 96366; 96375; 96376; 99284